=== PATIENT | female | born 1960 | race Hispanic/Latino ===

== ENCOUNTER 2023-10-14 21:04 | Emergency (ER) | payer SELFPAY ==
[2023-10-14] MEDS ORDERED: Dexamethasone 10 MG/ML VIAL ONE (22:41)
== END 2023-10-14 22:50 | disposition home or self-care (01) ==
LOC: CSHERS 21:04
DX: T63.461A Toxic effect of venom of wasps, accidental (unintentional), initial encounter (principal); T78.40XA Allergy, unspecified, initial encounter; I10 Essential (primary) hypertension; F17.290 Nicotine dependence, other tobacco product, uncomplicated
CPT/HCPCS: 99283; J1100